=== PATIENT | male | born 1980 | race Caucasian/White ===

== ENCOUNTER 2021-10-16 12:43 | Emergency (ER) | payer SELFPAY ==
[~2021-10-16] VITALS: Ht 177.8 cm; Wt 93.0 kg
[2021-10-16] MEDS ORDERED: VALIUM10 MG PO (13:01)
[2021-10-16] MEDS ORDERED: HYDROCODON-ACE1 EAC8 PO (13:01)
[2021-10-16] MEDS ORDERED: VENTOLIN HFA18 GM INH (13:01)
[2021-10-16] MEDS ORDERED: ELIQUIS5 MG PO (13:02)
[2021-10-16] MEDS ORDERED: METOPROLOL TART25 MG PO (13:02)
[2021-10-16] MEDS ORDERED: FLOMAX0.4 MG PO (13:02)
[2021-10-16] MEDS ORDERED: SERTRALINE HCL200 MG PO (13:03)
[2021-10-16] MEDS ORDERED: DIASTAT2.5 MG PR (13:03)
[2021-10-16] MEDS ORDERED: NEXIUM40 M1 PO (13:04)
--- NOTE | 2021-10-17 07:13 | EKG ---
[facility] [address] [place], [place] [address] Signed Sinus tachycardia Otherwise normal ECG No previous ECGs available Confirmed by BENOIT ANSARI MD [id number] on 10/17/2021 7:13:33 AM Electronically Signed By: BENOIT ANSARI MD 10/17/21712 PATIENT NAME: SORAYA SANCHEZ Electrocardiogram DATE OF : 76 PHYSICIAN: BENOIT ANSARI MD REPORT #: [id number] REPORT IS CONFIDENTIAL AND NOT TO BE RELEASED WITHOUT AUTHORIZATION
== END 2021-10-16 20:25 | disposition home or self-care (01) ==
LOC: ED 12:43
DX: F43.0 Acute stress reaction (principal); Z88.2 Allergy status to sulfonamides; Z79.899 Other long term (current) drug therapy; Z79.01 Long term (current) use of anticoagulants
CPT/HCPCS: 36415; 80053; 81001; 84443; 84484; 85025; 93005; 93010; 96374; 96375; 99285-25; G0480; J1790; J2060; J7030